=== PATIENT | female | born 1955 | race Caucasian/White ===

== ENCOUNTER 2025-02-18 14:30 | Inpatient (IN) | payer MEDICARE, SELFPAY ==
[2025-02-18] VITALS (21 sets, daily range): BP systolic 105–139; BP diastolic 47–69
--- NOTE | 2025-02-18 10:43 | ED.GENMED ---
History of Present Illness
General
Chief Complaint: Breathing Problem
Source: patient
Exam Limitations: none
Time Seen by Provider: 02/18/25 10:36
History of Present Illness
History of Present Illness:
69yoF with a history of diabetes insipidus, Grave's disease s/p thyroidectomy, seizure disorder, anemia presenting via EMS for evaluation of shortness of breath. Patient reports being sick for the past week with fatigue. She also had some diarrhea
which has resolved. She started to spike fevers yesterday with a Tmax of 101.6. EMS was called today by her daughter due to concern for her breathing. Daughters also noticed that she appeared very pale this morning which was new compared to
yesterday. Her oxygen saturation was 90% on EMS arrival. She was given a [facility] prehospital. She does not have a history of COPD or asthma but is a former smoker. She denies any chest pain or abdominal pain.
Phy Exam
Physical Exam
Physical Exam:
Patient appears fatigued and pale. Non-toxic
General Physical Exam
General Presentation: no apparent distress
General Skin: warm, dry and pale
ENT Exam
ENT Exam: normocephalic
Cardiovascular Exam
Cardiovascular Exam: regular rate/rhythm
Pulmonary Exam
Pulmonary Exam: lungs clear, no respiratory distress, no rales, no crackles and no rhonchi
Gastrointestinal Exam
Gastrointestinal Exam: non tender, soft and non distended
Neurological Exam
Neurological Exam: alert
[place] Coma Scale
Eye Opening: Spontaneous
Verbal Response: Oriented
Motor Response: Obeys Commands
GCS Total Score: 15
Skin Exam
Skin Exam: normal color and warm/dry
Psychiatric Exam
Psychiatric Exam: normal mood/affect
Scores
Heart Failure Risk
Heart Failure Risk Score: Not Applicable
Course
Orders/Labs/Results
Orders:
Orders
02/18/25 10:36
EKG [Electrocardiogram (*1)] Urgent
Reason for Study: Chest Pain
EKG- Treatment ONCE
02/18/25 10:43
CR Chest - 2 Views Urgent
Comment:
Reason For Exam: SOB
02/18/25 10:50
COVID-19 Antigen Urgent
Source: Nasal Swab
Complete Blood Count/With Diff Urgent
Comprehensive Metabolic Panel Urgent
Ferritin Urgent
Comment: ADD ON
Folate Urgent
Comment: ADD ON
Iron Urgent
Comment: AD ON
Manual Differential Urgent
NT-proBNP Urgent
Comment: ADD ON
Total Iron Binding Urgent
Comment: ADD ON
Troponin I Urgent
Vitamin B12 Urgent
Comment: ADD ON
Influenza A+B Rapid Molecular Urgent
SHAWN Source: Nasal Swab
Specimen Description:
02/18/25 11:29
Blood Bank Products [* Blood Bank Products] Urgent
Blood Bank Products: *Packed RBC Leuko(PRBC's)
Quantity: 2
Transfuse Today: Yes
Reason: Anemia
02/18/25 11:30
Acetaminophen [Tylenol] 1,000 mg PO NOW STA
02/18/25 11:49
PTT Urgent
Prothrombin Time Urgent
Blood Culture Q30M
SHAWN Source: Blood/Venous
Specimen Description:
02/18/25 11:50
Type+Screen Urgent
Chest/Abd/Pelvis w Contrast CT [CT Chest/abd/pel W Iv Cont] Urgent
Comment:
Reason For Exam: fever of unknown origin
02/18/25 13:04
ABO2 Routine
BBK Wristband Number:
Associate notified that ABO2 has been ordered: [id number]
Date: 02/18/25
Time: 12:00
[facility] [place] ID: [id number]
Blood Culture Q30M
SHAWN Source: Blood/Venous
Specimen Description:
02/18/25 13:17
Add On- LAB Urgent
Tests Added?: BNP
Furosemide [Lasix] 40 mg IV NOW STA
02/18/25 13:27
Furosemide [Lasix] 20 mg IV NOW STA
02/18/25 13:43
Add On- LAB Urgent
Tests Added?: Pro BNP
02/18/25 14:12
Admit/Transfer Patient As Directed
Co-Sign Provider:
Level of Care: Inpatient admission
Assign to:: IMU- Intermediate Care
Physician / Group: moiz
Diagnosis: symptomatic anemia
Reason for Hospitalization: symptomatic anemia
Expected length of stay greater than two midnights?: Yes
ELOS- Estimated Length of Stay in days: 3
I certify the patient meets the requirements for IP care: Yes
PRN Pain Medication Management As Directed
May give lesser potent ordered pain med per pt: Yes
preference::
Protocol:: Medication orders for pain may be administered in a
manner that supports deferring to patient preference
when the pt is:
- Requesting an ordered lesser potent pain medication.
Least to most potent pain medications are defined
as: acetaminophen < NSAID < tramadol < opioids
(morphine, oxycodone, hydromorphone).
- Requesting a lesser dose of the same medication IF
ORDERED.
- Requesting a less intrusive route of administration
if both routes are prescribed by the provider (PO <
IV).
02/18/25 14:14
Code Status As Directed
Resuscitation Status: Full Code
02/18/25 14:16
Add On- LAB Stat
Tests Added?: iron,ferritin, b12, foalte, TIBC
02/18/25 15:37
Haptoglobin [S] Routine
LDH Routine
Lyme PCR, DNA [S] Routine
Lyme Progressive Routine
Reticulocyte Count Routine
Urinalysis Reflex To Culture Urgent
Date Specimen was Collected: 02/18/25
Time Specimen was Collected: 15:13
Babesia Smear [Blood Parasites] Routine
SHAWN Source: Blood/Venous
Specimen Description:
02/20/25 11:00
DC Protocol for Telemetry ONCE
Abnormal Lab Results
02/18/25 02/18/25 02/18/25
10:50 11:49 11:50
WBC 3.6 L 10^3/uL
(4.8-10.8)
RBC 0.99 L 10^6/uL
(4.20-5.40)
Hgb 3.8 L* g/dL
(12.0-16.0)
Hct 10.8 L* %
(37.0-47.0)
MCV 109.1 H fL
(81.0-99.0)
MCH 38.4 H pg
(27.0-31.0)
RDW 17.6 H %
(11.5-14.5)
Plt Count 58 L 10^3/uL
(130-400)
MPV 12.8 H fL
(7.4-10.4)
Monocytes (Manual) 16 H %
(2-9)
PT 17.1 H Sec
(11.4-14.6)
APTT 19.9 L Sec
(23.4-35.0)
Chloride 111 H mmol/L
(98-107)
Carbon Dioxide 21 L mmol/L
(22-30)
BUN 30 H mg/dl
(7-17)
Glucose 199 H mg/dl
(70-99)
Iron 287 H ug/dl
(37-170)
% Saturation 86 H %
(20-50)
Ferritin 643.0 H ng/ml
(11.1-264.0)
Total Bilirubin 1.5 H mg/dl
(0.2-1.3)
ALT 39 H U/L
(0-35)
Vitamin B12 > 1000 H pg/ml
(239-931)
Folate > 20.0 H ng/ml
(2.76-20)
Crossmatch IS Only See Detail
02/18/25 10:50
02/18/25 10:50
Vital Signs
Initial and Last Documented VS:
Initial Vital Signs
Temp Pulse Ox
100.4 F H 88
02/18/25 10:27 02/18/25 10:27
Last Documented Vital Signs
Temp Pulse Resp BP Pulse Ox
99.6 F 80 18 117/54 92
02/18/25 16:05 02/18/25 16:05 02/18/25 16:05 02/18/25 16:05 02/18/25 16:05
MDM/Problems Addressed
Differential Diagnosis Includes:
69yoF here with SOB. C/o fatigue x 1 week. Started spiking fevers up to 101.6 yesterday. She is obviously pale on arrival although denies any bloody/black stools. Temp 100.4. Oxygen saturation 88% on room air and she was placed on 2L NC.
Differential diagnosis includes but is not limited to: Viral illness, pneumonia, sepsis, symptomatic anemia
Initial ED plan: Check cardiac labs, EKG, COVID/flu swab, and CXR.
*Pulse Oximetry
SaO2: 88
Oxygen Mode of Delivery: Room air
Patient hypoxic: yes (88%)
*EKG
Interpreted by ED Provider?: Yes
EKG Intrepretation Date: 02/18/25
Heart Rate: 85
Rate: normal
Rhythm: sinus
[place]: normal axis
QRS Pattern: right bundle branch block
Ischemia: non-specific ST changes
*Critical Care Note
Total Time (30-74mins, 75-104mins- exclusive of procedures): Not Applicable
Update Note
Update Note:
Labs show a pancytopenia with a hemoglobin of 3.8, white count 3.6, and platelet count of 58. Rectal exam performed and stool is brown and Hemoccult negative. Consent obtained and 2 units PRBCs ordered for transfusion. No source of infection
identified on workup. COVID/flu negative. CT CAP obtained which shows mild pulmonary edema. Dose of 20mg IV Lasix ordered as well as blood cultures. Patient admitted for further management.
ED Attending Note
-
Portions of this chart may have been created with voice recognition software.� Occasional wrong word or��sound alike� substitutions may have occurred due to the inherent limitations of voice recognition software.
Discharge Plan
Departure
Patient Disposition: Admit
Date of Disposition: 02/18/25
Time of Disposition: 13:29
Presentation/result/management discussed w/ accepting MD/DO: Hospitalist
Discharge Problem:
Pancytopenia, Acute hypoxic respiratory failure, Fever
Interventions
Interventions:
*Risk Screen - Suicide Last Done: 02/18/25 12:00
*General Assessment Last Done: 02/18/25 12:00
*Neglect/Abuse Screening Last Done: 02/18/25 12:00
*ED- Fall Risk Assessment Last Done: 02/18/25 12:00
ED- Cardiac Assessment Last Done: 02/18/25 12:00
ED- Pulmonary Assessment Last Done: 02/18/25 12:00
[2025-02-18 11:14] LABS: Hematocrit 10.8 % (37.0-47.0); Hemoglobin 3.8 g/dL (12.0-16.0); Mean Corp Hgb Conc. 35.2 g/dL (33.0-37.0); Mean Corpuscular Volume 109.1 fL (81.0-99.0); Red Cell Dist. Width 17.6 % (11.5-14.5)
--- NOTE | 2025-02-18 11:18 | EDRN ---
Lab called with abnormal test results. Notified Elo JADE and at bedside to sign consent for transfusion of blood.
Labs
WBC 3.6 10^3/uL (4.8-10.8) L 02/18/25 10:50
RBC 0.99 10^6/uL (4.20-5.40) L 02/18/25 10:50
Hgb 3.8 g/dL (12.0-16.0) L* 02/18/25 10:50
Hct 10.8 % (37.0-47.0) L* 02/18/25 10:50
MCV 109.1 fL (81.0-99.0) H 02/18/25 10:50
MCH 38.4 pg (27.0-31.0) H 02/18/25 10:50
MCHC 35.2 g/dL (33.0-37.0) 02/18/25 10:50
RDW 17.6 % (11.5-14.5) H 02/18/25 10:50
[2025-02-18 11:22] LABS: COVID-19 Antigen Negative (Negative)
[2025-02-18 11:32] LABS: Absolute Neutrophils -Man Diff 1.5 10^3/uL (1.4-6.5); Anisocytosis 1+; Normal RBC Morphology No; Platelet Count 58 10^3/uL (130-400); Platelets Checked Yes
[2025-02-18 11:33] LABS: Hypochromasia 1+; Ovalocytes Slight; Polychromasia Slight
[2025-02-18 11:34] LABS: Total Cells Counted 100
[2025-02-18 11:53] LABS: ALT (SGPT) 39 U/L (0-35); AST (SGOT) 35 U/L (14-36); Albumin 4.0 g/dl (3.5-5.0); Alkaline Phosphatase 65 U/L (38-126); Blood Urea Nitrogen 30 mg/dl (7-17); Calcium 9.4 mg/dl (8.4-10.2); Carbon Dioxide 21 mmol/L (22-30); Chloride 111 mmol/L (98-107); Glucose 199 mg/dl (70-99); Potassium 4.5 mmol/L (3.5-5.1); Sodium 138 mmol/L (135-145); Total Protein 6.7 g/dl (6.3-8.2); eGFR > 60.00
[2025-02-18 11:58] LABS: Troponin I < 0.012 ng/ml
[2025-02-18 12:11] LABS: INR 1.34; PT 17.1 Sec (11.4-14.6)
[2025-02-18 12:26] LABS: APTT 19.9 Sec (23.4-35.0)
--- NOTE | 2025-02-18 13:30 | HPS.HSE ---
Family Physician
-
Family Physician: ARIANA Son
Chief Complaint
-
sob
weakness
History of Present Illness
69yoF with a history of diabetes insipidus, Grave's disease s/p thyroidectomy, seizure disorder, anemia presenting with fatigue weakness since Sunday. patient was noted to have diarrhea on Sunday night which resolved. since then she is very
nauseous, dry heaves and abdominal upset. she is complaining of MICHEL and dizzy. she was noted to have fever of 101.6 last night. last night she felt like she is going to pass out. denied fever, chills, cough. denied chest pain. she complained of sob.
denied dysuria or hematuria. via EMS for evaluation of shortness of breath.today she continued to look tired and weak. her pulse ox wasn oted noted in low 80's at home which prompt them to bring her to the hospital. patient denied any acute pain.
as per hx of remote hxt iron infusion for anemia. hxt of colonoscopy which was negative few years ago. Cologuard was three years ago.
upon arrival she was noted panycotpenia. Ordered 2 units of blood in the ER
Medical History
Past Medical History
Past Medical History: Reports Other
Additional Past Medical History:
Hypothyroidism
Anxiety
Anemia
Hypertension
Hypothyroidism
Headache
Hernia
Arthritis
Rotator cuff tear
Thyroid nodule
Depression
Seizure
Pituitary tumors
Central diabetes insipidus
Past Surgical History: Reports Other
Additional Past Surgical History:
Thyroidectomy
Social History
Tobacco: Former Smoker
Alcohol: Former
Drug: None
Living: With Family
Family History
Family History: Not pertinent
Allergies / Home Medications
Allergies reflects when Allergies were last updated in [employer].
Home Medications with original date entered in [employer]
Allergy/Medication List:
Allergies
Allergy/AdvReac Type Severity Reaction Status Date / Time
cefuroxime Allergy Unknown Unknown Unverified 02/18/25 10:35
Cephalosporins Allergy Unknown Unknown Unverified 02/18/25 10:35
Penicillins Allergy Unknown Unknown Unverified 02/18/25 10:35
penicillin G Allergy Unknown Unverified 02/18/25 10:35
Home Medications
acetaminophen 500 mg tablet (Tylenol Extra Strength) 1,000 mg PO Q6HPRN PRN mild pain 02/18/25
aspirin 81 mg tablet,delayed release 81 mg PO DAILY 02/18/25
calcium carbonate (Tums) 400 mg PO BIDPRN PRN gerd 02/18/25
cholecalciferol (vitamin D3) 50 mcg (2,000 unit) capsule (Vitamin D3) 50 mcg PO DAILY 02/18/25
citalopram 20 mg tablet (Celexa) 20 mg PO DAILY 02/18/25
cyanocobalamin (vitamin B-12) 1,000 mcg tablet 1,000 mcg PO DAILY 02/18/25
desmopressin 0.1 mg tablet 0.1 mg PO BID 02/18/25
ferrous sulfate 325 mg (65 mg iron) tablet 325 mg PO Q48H 02/18/25
lacosamide 200 mg tablet (Vimpat) 200 mg PO BID 02/18/25
levothyroxine 112 mcg tablet (Synthroid) 112 mcg PO DAILY 02/18/25
mirtazapine 45 mg tablet 45 mg PO HS 02/18/25
propranolol 20 mg tablet 20 mg PO TID 02/18/25
Review of Systems
-
Constitutional: Reports Fatigue
EENT: Reports No Symptoms
Respiratory: Reports Trouble Breathing
Cardiac: Reports No Symptoms
Abdomen/GI: Reports Constipated
: Reports No Symptoms
Musculoskeletal: Reports No Symptoms
Skin: Reports No Symptoms
Neurological: Reports Dizzy, Headache and Weakness
Endocrine: Reports No Symptoms
Hematologic/Lymphatic: Reports No Symptoms
Psych: Reports No Symptoms
Physical Exam
Vital Signs
Vital Signs
Temp Pulse Resp BP Pulse Ox
100.4 F H 78 26 133/50 95
02/18/25 10:27 02/18/25 11:00 02/18/25 11:00 02/18/25 11:00 02/18/25 11:00
Physical Exam
General: Well Developed, Well Nourished and No Apparent Distress
HEENT: NormoCephalic, Moist mucous membranes and Atraumatic
Respiratory: Clear
Cardiac: S1/S2 and Regular Rhythm; No Murmur or Rub
GI: Soft, Non Tender, Non Distended and Normal Bowel Sounds; No Organomegaly
Rectal: Deferred by Provider
Musculoskeletal: No Clubbing, No Cyanosis and No Edema
Skin: No Rash
Neuro: AO x 3 and Nonfocal/grossly intact
Psych: Calm
Laboratory Results
-
02/18/25 10:50
02/18/25 10:50
Laboratory Results
PT 17.1 Sec (11.4-14.6) H 02/18/25 11:49
INR 1.34 02/18/25 11:49
APTT 19.9 Sec (23.4-35.0) L 02/18/25 11:49
Total Bilirubin 1.5 mg/dl (0.2-1.3) H 02/18/25 10:50
AST 35 U/L (14-36) 02/18/25 10:50
ALT 39 U/L (0-35) H 02/18/25 10:50
Alkaline Phosphatase 65 U/L (38-126) 02/18/25 10:50
Troponin I < 0.012 ng/ml 02/18/25 10:50
Data Reviewed
-
Diagnostic Radiology: Report Reviewed by me
CT Scan: Report Reviewed by me
Lab Data: Labs Reviewed by me
Impression/Plan
-
#Acute hypoxic respiratory failure Secondary to pulmonary edema/symptomatic anemia
-CT chest abdomen pelvis with impression of Findings consistent with pulmonary edema. See above. Mild cardiomegaly. Cholelithiasis.
-Chest x ray with Low lung volumes with increased bronchovascular markings bilaterally. There are several nodular opacities bilaterally which may represent artifact/vessel en face. No significant pleural effusions. Findings may represent
interstitial edema. Follow-up radiographs and/or CT recommended to reevaluate the questioned nodular opacities.
-Patient received Lasix in ER
- Obtain echocardiogram
-Strict WILLIS, daily weight
#History of iron deficiency anemia
# Pancytopenia unclear cause
- WBC 3.6, hemoglobin 3.8 and platelets 58
- 2 units PRBCs in the ER
-Hemoccult negative in ER
-obtain lyme, Babesia
-obtain LDH, haptoglobin,reticulocyte count
-obtain iron panel
#Depression
- Citalopram continued
-Remeron continued for sleep
# History of pituitary tumor
#Diabetes Insipidus
- Desmopressin continued
#History of seizure
-vimpat continued
#Hypothyroidism
- Levothyroxine continued
#DVT prophylaxis
-scd
#CODE status
-full coce
[2025-02-18 14:49] LABS: Iron 287 ug/dl (37-170)
[2025-02-18 14:59] LABS: Total Iron Binding Capacity 330 ug/dl (265-497)
[2025-02-18 15:48] LABS: Reticulocyte Count 1.6 % (0.4-2.8)
[2025-02-18 15:49] LABS: Urine Character Clear (Clear)
[2025-02-18 16:00] LABS: Urine Red Blood Cell 0-2 /HPF (0-2)
[2025-02-18 16:05] LABS: LDH 385 U/L (120-246)
[2025-02-18 16:26] LABS: Ferritin 643.0 ng/ml (11.1-264.0)
--- NOTE | 2025-02-18 16:53 | CARDSERVLU ---
Echocardiogram with Lumason completed after protocol screening completed. Allergies verified.
Patent IV site: __LAC___
IV site flushed with 0.9% NaCl pre and post administration.
Diluted bolus method utilized to enhance visualization of ventricular stroud.
Total volume given: __4__ mL
Patient tolerated all procedures well without complications.
[2025-02-18 16:57] LABS: Folate > 20.0 ng/ml (2.76-20); Vitamin B12 > 1000 pg/ml (239-931)
--- NOTE | 2025-02-18 17:45 | PTCARENOTE ---
Patient arrived to IMU from the ED. Patient slid from stretcher to bed. AOx3, but forgetful. Bed alarm on and audible. 2L NC with SpO2 greater than 92%. NSR with BBB on monitor. BP stable. PRBC's running per order. Patient utilizes bedpan. Daughters
at bedside. Call ochoa within reach, bed in lowest position, and bed of wheels locked.
[2025-02-18] MEDS: INDERAL 20 MG PO ×2 (17:56→21:39)
[2025-02-18] MEDS: VIBRAMYCIN 260 MG IV (19:08)
[2025-02-18] MEDS: DDAVP 0.1 MG PO (19:28)
[2025-02-18] MEDS: VIMPAT 200 MG PO (19:28)
[2025-02-18] MEDS: TYLENOL 650 MG PO (19:29)
[2025-02-18] MEDS: REMERON 45 MG PO (21:40)
[2025-02-19] VITALS (28 sets, daily range): BP systolic 110–150; BP diastolic 49–90
[2025-02-19 01:49] LABS: Hematocrit 18.7 % (37.0-47.0); Hemoglobin 6.6 g/dL (12.0-16.0)
--- NOTE | 2025-02-19 02:00 | W.PN.UPDATE ---
Addendum entered and electronically signed by ARIANA Lopez 02/19/25 19:45:
02/19 0600 late note
RN reported in AM patient was sleeping comfortably after the lasix, now woke up with more cough and shortness of breath.hr is 77, RR are 25, o2 is 94% on 3 L, bp is 144/63. Will order Duoneb, chest Xray stat at present.
Original Note:
Update Note
Progress Note Update
Patient with shortness of breath at present, Temp 99.6 128/67 26 90% on 2L, 96% on 3L now. Patient seen and evaluated, oriented, conversant, Looks uncomfortable pale, reports she feels short of breath and has a dry cough which is not new. Lungs with
rales at the bases L>R, diminished otherwise. HR RR, voiding without difficulty, Bladder scan <50, no edema, Xray results noted, Plan of care noted.
Lasix 40mg IV now.
hgb 6.8 will order one more unit of blood.
May need Bipap if worsens.
129/51 72 95% 17, Patient resting in bed comfortably at present. no new complaints.
Labs
[2025-02-19] MEDS: LASIX 40 MG IV (02:03)
--- NOTE | 2025-02-19 02:18 | PTCARENOTE ---
Patient experiencing SOB and dry cough that was new. TT OCCUP THER, OCCUP THER at bedside to assess patient. New orders placed, see MAR. Patient on 3L NC. Repeat Hgb 6.6, another unit PRBC ordered. Continuing to monitor patient. Call ochoa in reach.
--- NOTE | 2025-02-19 03:20 | PTCARENOTE ---
started blood at 0258. Two nurse verification done at bedside. Back timed tar by 1 minute due to delay of pushing begin in tar. Verified with blood bank and nursing supervisor wood room.
[2025-02-19 03:45] LABS: Hematocrit 19.7 % (37.0-47.0); Hemoglobin 6.8 g/dL (12.0-16.0); Mean Corp Hgb Conc. 34.5 g/dL (33.0-37.0); Mean Corpuscular Volume 100.0 fL (81.0-99.0); Platelet Count 54 10^3/uL (130-400); Red Cell Dist. Width 19.3 % (11.5-14.5)
[2025-02-19 03:59] LABS: ALT (SGPT) 48 U/L (0-35); AST (SGOT) 39 U/L (14-36); Albumin 4.2 g/dl (3.5-5.0); Alkaline Phosphatase 71 U/L (38-126); Blood Urea Nitrogen 29 mg/dl (7-17); Calcium 9.1 mg/dl (8.4-10.2); Carbon Dioxide 22 mmol/L (22-30); Chloride 111 mmol/L (98-107); Glucose 162 mg/dl (70-99); HDL Cholesterol 31 mg/dl; LDL Cholesterol, Calculated 62 mg/dl; Magnesium 2.3 mg/dl (1.6-2.3); Potassium 4.0 mmol/L (3.5-5.1); Sodium 141 mmol/L (135-145); Total Protein 7.1 g/dl (6.3-8.2); Very Low Density Lipoprotein 20 mg/dl (0-30); eGFR > 60.00
[2025-02-19] MEDS: VIBRAMYCIN 260 MG IV ×2 (04:44→16:46)
[2025-02-19] MEDS: SYNTHROID 112 MCG PO (04:44)
[2025-02-19] MEDS: DUONEB 3 ML INH (06:18)
--- NOTE | 2025-02-19 06:54 | CON.ONC ---
Consultation
-
Date Consultation Performed: 02/19/25
Performing Provider: Homer Briggs DO
Impression
Impression
Acute hypoxic respiratory failure secondary to pulmonary edema and symptomatic anemia
- CT chest AP with impression of findings consistent with pulmonary edema
Acute on Chronic Macrocytic Anemia exacerbation with out compensation
- retic 1.6%
- Pancytopenia unclear cause
- repeat H&H pending s/p transfusion of additional (3rd) unit of blood
Plan
Plan
Ordered TSH to assess thyroid function
ordered uric acid, phosphorus in setting of elevated LDH
Ordered GEN
Ordered stool occult testing
UA negative for blood and RBCs
Will wait on pending serology (lyme, babesiosis) for possible etiology of pancytopenia
If negative, patient may have a myelodysplastic disease or bone marrow failure given the pancytopenia without compensation. In this case, bone marrow biopsy would be likely indicated.
Repeat Hgb and hematocrit pending. Would recommend additional transfusion if Hgb <7.
Patient History
History of Present Illness
Patient is a 69 year old female with PMH of a pituitary tumor, central diabetes insipidus, Graves' Disease (s/p thyroidectomy and subsequent hypothyroidism), seizure disorder and chronic iron deficiency anemia who presented to the ED with weakness
and GI symptoms. Patient had one episode of diarrhea on 02/15 with associated with N/V. She also reported a fever of 100.6 on 02/17. Patient has had iron infusions in the past, but has never had a blood transfusion. Patient has had normal colonoscopy
in the past, and a normal Cologuard 3 years ago.
In the ED, patient was mildly febrile 100.4 F and mildly hypoxic with pulse ox in high 80s on room air which improved to low 90s on 2 L NC. Labs revealed pancytopenia: WBC 3.6, Hgb 3.8, Plts 58,000.
BUN of 30 with a creatinine of 1.0, mildly abnormal LFTs with a T. bili 1.5/AST 35/ALT 39, BNP elevated at 5700
Hemolysis Work up: retic count 1.6%, LDH 385, haptoglobin pending
Chest CT shows pulmonary edema and small bilateral pleural effusions
She was given a dose of IV Lasix and 2 units of PRBCs were transfused followed by an additional unit overnight. She has been admitted for further evaluation and management of symptomatic anemia and pancytopenia.
Today patient labs are WBC 4.4, Hgb 6.8, Plt 54
Patient seen at the bedside this morning. She said she is feeling better and stronger than yesterday when she arrived. Patient has had chronic anemia since she was a teenager, but she thinks she only has ever taken iron supplements for it. Patient
is a poor historian and advised we talk to her daughter who is a nurse. Patient denies all ROS this morning.
Past-Medical/Surgical History
Medical History
Anxiety
Depression
Anemia
Hypertension
Graves Disease s/p thyroidectomy and subsequent hypothyroidism
Seizure
Pituitary tumor
Central diabetes insipidus
Surgical History
Thyroidectomy
Patient Medication
�Medication �Instructions �Recorded �Confirmed �Last Taken �Type
acetaminophen 500 mg tablet 1,000 mg PO Q6HPRN PRN mild pain 02/18/25 02/18/25 02/17/25 History
(Tylenol Extra Strength)
aspirin 81 mg tablet,delayed 81 mg PO DAILY 02/18/25 02/18/25 Unknown History
release
calcium carbonate (Tums) 400 mg PO BIDPRN PRN gerd 02/18/25 02/18/25 02/17/25 History
cholecalciferol (vitamin D3) 50 50 mcg PO DAILY 02/18/25 02/18/25 Unknown History
mcg (2,000 unit) capsule (Vitamin
D3)
citalopram 20 mg tablet (Celexa) 20 mg PO DAILY 02/18/25 02/18/25 02/18/25 History
cyanocobalamin (vitamin B-12) 1,000 mcg PO DAILY 02/18/25 02/18/25 Unknown History
1,000 mcg tablet
desmopressin 0.1 mg tablet 0.1 mg PO BID 02/18/25 02/18/25 02/18/25 History
ferrous sulfate 325 mg (65 mg 325 mg PO Q48H 02/18/25 02/18/25 02/17/25 History
iron) tablet
lacosamide 200 mg tablet (Vimpat) 200 mg PO BID 02/18/25 02/18/25 02/18/25 History
levothyroxine 112 mcg tablet 112 mcg PO DAILY 02/18/25 02/18/25 Unknown History
(Synthroid)
mirtazapine 45 mg tablet 45 mg PO HS 02/18/25 02/18/25 Unknown History
propranolol 20 mg tablet 20 mg PO TID 02/18/25 02/18/25 02/18/25 History
Active Medications
Generic Name Dose Route Start Last Admin
Trade Name Freq PRN Reason Stop Dose Admin
Acetaminophen 650 mg 02/18/25 17:13 02/18/25 19:29
Acetaminophen 325 Mg Tablet PO 03/18/25 17:12 650 mg
Q4HPRN PRN Administration
mild pain/MICHEL/temp> 100.4F
Bisacodyl 10 mg 02/18/25 17:13
Bisacodyl 10 Mg Rectal Suppository RECTAL 03/18/25 17:12
[id number] PRN
constipation
Citalopram Hydrobromide 20 mg 02/19/25 08:00
Citalopram 20 Mg Tablet PO 03/19/25 07:59
DAILY IGNACIO
Desmopressin Acetate 0.1 mg 02/18/25 20:00 02/18/25 19:28
Desmopressin 0.1 Mg Tablet PO 03/18/25 19:59 0.1 mg
BID IGNACIO Administration
Ferrous Sulfate 325 mg 02/19/25 08:00
Ferrous Sulfate 325 Mg Tablet PO 03/19/25 07:59
Q48H IGNACIO
Doxycycline Hyclate 100 mg/ 260 mls @ 260 mls/hr 02/18/25 16:00 02/19/25 04:44
Sodium Chloride IV 260 mls
Q12H IGNACIO Administration
Lacosamide 200 mg 02/18/25 20:00 02/18/25 19:28
Lacosamide (Vimpat) 200 Mg Tablet PO 03/18/25 19:59 200 mg
BID IGNACIO Administration
Levothyroxine Sodium 112 mcg 02/19/25 06:00 02/19/25 04:44
Levothyroxine 112 Mcg Tablet PO 03/19/25 05:59 112 mcg
DAILY@0600 IGNACIO Administration
Mirtazapine 45 mg 02/18/25 22:00 02/18/25 21:40
Mirtazapine 15 Mg Regular Release Tablet PO 03/18/25 21:59 45 mg
HS IGNACIO Administration
Polyethylene Glycol 17 grams 02/18/25 17:13
Polyethylene Glycol Powder 17 Grams Packet PO 03/18/25 17:12
DAILYPRN PRN
constipation
Propranolol HCl 20 mg 02/18/25 17:13 02/18/25 21:39
Propranolol 20 Mg Regular Release Tablet PO 03/18/25 17:12 20 mg
TID IGNACIO Administration
Senna/Docusate Sodium 1 tablet 02/18/25 17:13
Docusate W/Senna (Dina-Colace) Tablet PO 03/18/25 17:12
BIDPRN PRN
constipation
Sodium Chloride 0 flush 02/18/25 18:00
Sodium Chloride 0.9% (Flush) Syringe IV 03/18/25 17:59
PER PROTOCOL IGNACIO
Review of Systems
-
History Source: Patient
Constitutional: Reports Fever, Fatigue and Weakness
EENT: Reports No Symptoms
Respiratory: Reports No Symptoms
Cardiac: Reports No Symptoms
GI: Reports Nausea, Vomiting and Diarrhea
: Reports No Symptoms
Musculoskeletal: Reports No Symptoms
Skin: Reports No Symptoms
Neuro: Reports No Symptoms
Hematologic/Lymphatic: Reports No Symptoms
Psych: Reports No Symptoms
Physical Exam
-
General: No Apparent Distress and Comfortable
Cardiology: Normal Sinus Rhythm
Pulmonary: Clear
GI: Soft and Normal Bowel Sounds
Musculoskeletal: No Edema
Extremities: Pulses Present
Skin: Warm and Dry
Psych: Calm
Labs
Lab Results
WBC 4.4 10^3/uL (4.8-10.8) L 02/19/25 03:01
RBC 1.97 10^6/uL (4.20-5.40) L 02/19/25 03:01
Hgb 6.8 g/dL (12.0-16.0) L* 02/19/25 03:01
Hct 19.7 % (37.0-47.0) L* 02/19/25 03:01
MCV 100.0 fL (81.0-99.0) H 02/19/25 03:01
MCH 34.5 pg (27.0-31.0) H 02/19/25 03:01
MCHC 34.5 g/dL (33.0-37.0) 02/19/25 03:01
RDW 19.3 % (11.5-14.5) H 02/19/25 03:01
Plt Count 54 10^3/uL (130-400) L 02/19/25 03:01
MPV 12.3 fL (7.4-10.4) H 02/19/25 03:01
Creatinine 0.9 mg/dL (0.6-1.0) 02/19/25 03:01
Vital Signs
Vital Signs
Temp Pulse Resp BP Pulse Ox
99.6 F 78 16 144/63 96
02/19/25 05:40 02/19/25 06:21 02/19/25 06:21 02/19/25 05:40 02/19/25 06:21
[2025-02-19] MEDS: CELEXA 20 MG PO (07:32)
[2025-02-19] MEDS: VIMPAT 200 MG PO ×2 (07:32→20:28)
[2025-02-19] MEDS: TYLENOL 650 MG PO (07:32)
[2025-02-19] MEDS: DDAVP 0.1 MG PO (07:32)
[2025-02-19] MEDS: FEOSOL 325 MG PO (07:32)
[2025-02-19] MEDS: INDERAL 20 MG PO ×3 (07:33→20:28)
--- NOTE | 2025-02-19 09:11 | PTCARENOTE ---
Patient had 100.6 F oral temp this AM. PO tylenol given per OCT. Temp rechecked after approx an hour and is 98.8 F. Care ongoing.
[2025-02-19 11:40] LABS: Hematocrit 18.4 % (37.0-47.0); Hemoglobin 6.6 g/dL (12.0-16.0)
[2025-02-19 12:09] LABS: Uric Acid 4.5 mg/dl (2.5-6.2)
--- NOTE | 2025-02-19 12:18 | W.PN.HOSP.TC ---
Addendum entered and electronically signed by Taiwo Thomas DO 02/19/25 15:51:
Clarification of etiology of pulmonary edema:
Acute non-cardiac pulmonary edema due to fluid overload to the best my knowledge at this time
Original Note:
Today's Communication/Plan
-
Assessment / Plan
Assessment / Plan
General: No Apparent Distress, Comfortable and Conversant
HEENT: NormoCephalic, Moist mucous membranes, Atraumatic
Respiratory: Clear and Non Labored Respirations
Cardiac: S1/S2 and Regular Rhythm; No Rub or Gallop
GI: Soft, Non Tender, Non Distended and Normal Bowel Sounds
Musculoskeletal: No Edema, no deformity
Skin: Warm and dry, pale
: NO Page
Neuro: Awake, Alert, Nonfocal/grossly intact
Psych: Calm and Intact Judgment/Insight
Ms. Bay is a 69-year-old female with medical history of pituitary tumor, central diabetes insipidus, Graves' disease (status post thyroidectomy and subsequent acquired hypothyroidism), seizure disorder, and chronic iron deficiency anemia who
presented with generalized weakness and GI symptoms. Her symptoms began on Sunday with 1 episode of diarrhea. She has also had intermittent nausea and vomiting. She reports a fever of 100.6 �F at home last evening. She denies abdominal pain or
blood in her stools. She denies cough or shortness of breath. She has received iron infusions in the past remotely but never blood transfusions. She has had a colonoscopy which was reportedly negative previously and a Cologuard 3 years ago which
was also reportedly negative. She has a significant smoking history of approximately 40 pack years, quit 3 years ago when she developed seizures. Has never followed up with a house mover helper.
In the ED, she was found to be mildly febrile with a temperature of 100.4 �F, normotensive, and mildly hypoxic with a pulse ox in the high 80s on room air which improved to the mid 90s on 2 L nasal cannula. Labs revealed pancytopenia with WBC 3.6,
hemoglobin 3.8, and platelets of 58,000. Chemistry was remarkable for a BUN of 30 with a creatinine of 1.0, mildly abnormal LFTs with a T. bili 1.5/AST 35/ALT 39, BNP elevated at 5700. Chest CT shows pulmonary edema and small bilateral pleural
effusions. Respiratory panel was negative for COVID and influenza. She was given a dose of IV Lasix and 2 units of PRBCs were ordered. She has been admitted for further evaluation and management of symptomatic anemia and pancytopenia.
Pancytopenia:
- No evidence of bleeding, checking Hemoccult, hemodynamically stable
- Transfused 3 units PRBCs since admission, repeat hemoglobin 6.6 this morning, will transfuse another unit
- Inappropriately low reticulocyte count with elevated MCV of 109 raising concern for myelodysplasia
- White count and platelets relatively stable, no absolute neutropenia or lymphopenia
- Hemolysis workup ongoing but relatively unremarkable, only very mildly elevated T. bili at time of admission which is trended up slightly to 2.2, LDH elevated, haptoglobin pending, continue to monitor LFTs
- Workup for tickborne illness ongoing, Lyme/babesiosis/Ehrlichia/Anaplasma pending, started empiric doxycycline upon admission, added Levaquin for broader coverage considering fevers overnight and multiple drug allergies
- Heme-onc following, guidance is appreciated, unremarkable peripheral smear, recommending eventual bone marrow biopsy
Pulmonary edema:
- No history of CHF
- Chest imaging shows pulmonary edema and bilateral pleural effusions, labs show significantly elevated BNP of 5700
- Echocardiogram shows elevated right-sided pressures, normal LVEF
- Given IV Lasix in the ED and another dose overnight, will start scheduled Lasix considering blood transfusions
- Repeat CT angiography of chest this morning 02/19 shows worsening pulmonary edema and effusions, no evidence of PE
- Will check troponins
- Suspect desmopressin use for diabetes insipidus may be contributing to volume overload, decrease dose
Acute hypoxic respiratory failure:
- Likely secondary to pulmonary edema
- Continue supplemental oxygen, wean as able
- Treatment of pulmonary edema as above
- Continue antibiotics with doxycycline, added Levaquin considering ongoing intermittent fevers, follow-up cultures
- DuoNebs ordered as needed
- She will need outpatient pulmonology follow-up for PFTs considering approximately [id number] smoking history
Central diabetes insipidus:
- Decreased home dose of desmopressin to 0.1 mg once daily
DVT prophylaxis: SCDs
CODE STATUS: Full code
Total time spent on today's encounter was 40 minutes
Anticipated Discharge: > 48 hours
Subjective/Interval History
-
Date of Service: February 19, 2025
Patient was seen and examined at bedside this morning. Currently breathing comfortably and saturating in the mid 90s on 3 L via nasal cannula. She had an episode of hypoxia overnight with repeat x-ray showing worsening edema. She was given a dose
of IV Lasix, also required an additional unit of blood.
Objective Data
-
Labs:
Laboratory Results
02/19/25 02/19/25 02/19/25
01:24 03:01 11:03
WBC 4.4 L
Hgb 6.6 L* D 6.8 L* 6.6 L*
Hct 18.7 L* 19.7 L* 18.4 L*
Plt Count 54 L
Sodium 141
Potassium 4.0
Chloride 111 H
Carbon Dioxide 22
BUN 29 H
Creatinine 0.9
Glucose 162 H
Calcium 9.1
Total Bilirubin 2.2 H
AST 39 H
ALT 48 H
Alkaline Phosphatase 71
Vital Signs:
Vital Signs
Temp Pulse Resp BP Pulse Ox
98.4 F 71 19 125/57 93
02/19/25 11:13 02/19/25 11:00 02/19/25 11:00 02/19/25 10:00 02/19/25 11:00
I&O
02/18/25 02/19/25 02/20/25
06:59 06:59 06:59
Intake Total 1480 / 1480
Output Total 800 / 800
Balance 680 / 680
Review of Systems
-
History Source: Patient
All other systems: Reviewed and negative
Constitutional: Reports Fatigue
Respiratory: Reports Cough
Physical Exam
-
General: No Apparent Distress
[2025-02-19] MEDS: LASIX 20 MG IV (12:31)
[2025-02-19] MEDS: LEVAQUIN 750 MG PO (12:31)
[2025-02-19 12:32] LABS: TSH 1.32 uIU/ml (0.47-4.68)
[2025-02-19 12:46] LABS: Lyme Antibody Screen, EIA Negative (Negative)
--- NOTE | 2025-02-19 15:03 | PN.CDI ---
CDI
- -
CDI:
Physician Documentation Request
Admit Date: 02/18/25 14:30
Dear Doctor William,
Please review the following and provide your response in the progress notes.
Clinical Indicators:
PN, 02/19
#Pulmonary edema:
#...- No history of CHF
#...- Chest imaging shows pulmonary edema and bilateral pleural effusions,
#...labs show significantly elevated BNP of 5700
#- Echocardiogram shows elevated right-sided pressures,
#...normal LVEF
#...- Given IV Lasix in the ED and another dose overnight,
#...will start scheduled Lasix considering blood transfusions
#- Repeat CT angiography of chest this morning 02/19 shows worsening pulmonary edema
#...and effusions, no evidence of PE
#...- Suspect desmopressin use for diabetes insipidus may be contributing
#...to volume overload, decrease dose
Please clarify the acuity and etiology of the pulmonary edema:
Acute non-cardiac pulmonary edema due to fluid overload
Acute non-cardiac pulmonary edema due to other cause (please specify)
Acute pulmonary edema due to heart failure (please specify type and acuity)
Type: systolic, diastolic, combined or other type
Acuity: acute (new onset), chronic or acute on chronic
Chronic pulmonary edema due to non-cardiac etiology (specify cause)
Other (please specify)
Use of terms such as suspected, likely, concern for, or probable (associated with a specific diagnosis that is being evaluated, monitored, or treated as if it exists) are acceptable and can be coded in the inpatient setting, when documented at the
time of discharge.
Thank you,
Laura Arauz RN BSN CCDS
CDI Specialist
Please contact via tiger text
Please use your independent medical judgment in providing your response.
--- NOTE | 2025-02-19 15:47 | CM ---
Alert awake oriented patient who lives with her dgt Odalys in one story home with 1 steps to enter .She does not drive . She is assisted with meals and meds. She is on new oxygen .
No adaptive devices
Has had VN/SNF in [place]
Pharmacy [facility]
PCP Dr Alston
PLAN Will need PT OT for dc planning.
--- NOTE | 2025-02-19 16:33 | PTCARENOTE ---
Patient AOx3. Patient is forgetful, has flat affect, and is anxious. Bed and chair alarm on and audible. 2L NC with SpO2 greater than 92%. Attempted to wean patient to RA but SpO2 went below 88%. NSR with BBB on monitor. BP stable. 1 unit of PRBC's
infused per order. Purewick draining yellow urine. Daughter at bedside and updated with plan of care. Call ochoa within reach, bed in lowest position, and bed of wheels locked.
[2025-02-19 18:53] LABS: Hematocrit 21.9 % (37.0-47.0); Hemoglobin 7.9 g/dL (12.0-16.0)
[2025-02-19 19:20] LABS: Troponin I 0.020 ng/ml
[2025-02-19] MEDS: REMERON 45 MG PO (20:28)
[2025-02-20] VITALS (15 sets, daily range): BP systolic 76–147; BP diastolic 18–88; PULSE 70–73; O2SAT 95–96
[2025-02-20 03:44] LABS: Hematocrit 22.8 % (37.0-47.0); Hemoglobin 8.2 g/dL (12.0-16.0); Mean Corp Hgb Conc. 36.0 g/dL (33.0-37.0); Mean Corpuscular Volume 94.2 fL (81.0-99.0); Red Cell Dist. Width 18.0 % (11.5-14.5)
[2025-02-20 04:05] LABS: ALT (SGPT) 41 U/L (0-35); AST (SGOT) 33 U/L (14-36); Albumin 3.9 g/dl (3.5-5.0); Alkaline Phosphatase 69 U/L (38-126); Blood Urea Nitrogen 23 mg/dl (7-17); Calcium 8.1 mg/dl (8.4-10.2); Carbon Dioxide 22 mmol/L (22-30); Chloride 106 mmol/L (98-107); Glucose 135 mg/dl (70-99); Platelet Count 52 10^3/uL (130-400); Potassium 3.3 mmol/L (3.5-5.1); Sodium 138 mmol/L (135-145); Total Protein 6.7 g/dl (6.3-8.2); eGFR > 60.00
[2025-02-20] MEDS: SYNTHROID 112 MCG PO (04:21)
[2025-02-20] MEDS: KCL 40 MEQ PO ×2 (04:21→09:38)
[2025-02-20] MEDS: VIBRAMYCIN 260 MG IV ×2 (04:21→16:19)
--- NOTE | 2025-02-20 04:54 | PTCARENOTE ---
Patient complained of wave of nausea followed by hemoptysis. fisher scallop provider made aware. Am hgb 8.2. Nausea resolved on its own. Am k 3.3 fisher scallop provider ordered repletion. Will continue to monitor.
--- NOTE | 2025-02-20 06:13 | PTCARENOTE ---
Patient complaining of nausea and requesting medication. electric lift truck driver provider made aware and ordered dose of benadryl.
[2025-02-20] MEDS: BENADRYL 12.5 MG IV (06:16)
[2025-02-20] MEDS: LEVAQUIN 750 MG PO (09:34)
[2025-02-20] MEDS: DDAVP 0.1 MG PO (09:34)
[2025-02-20] MEDS: CELEXA 20 MG PO (09:34)
[2025-02-20] MEDS: VIMPAT 200 MG PO ×2 (09:34→19:52)
[2025-02-20] MEDS: LASIX 40 MG IV (09:35)
[2025-02-20] MEDS: INDERAL 20 MG PO ×3 (09:35→22:54)
--- NOTE | 2025-02-20 11:03 | W.PN.ONC ---
Documented by User: Kaycee Ragland DO, Resident 02/20/25 11:17
Today's Communication / Plan
-
Hgb today 8.2 s/p transfusion
Plt 52
GEN negative
No clear evidence of GI blood loss or hemolysis.
Continue to monitor with CBC. Continue to transfuse hemoglobin less than 7 g/dL.
Will wait on pending workup for tickborne illness (lyme/babesiosis/Ehrlichia/Anaplasma)
If negative, patient may have a myelodysplastic disease or bone marrow failure given the pancytopenia without compensation. In this case, out patient bone marrow biopsy would be likely indicated.
Impression
Impression
Acute non-cardiac pulmonary edema due to fluid overload
- CT chest AP with impression of findings consistent with pulmonary edema
Symptomatic Acute on Chronic Macrocytic Anemia exacerbation with out compensation
- retic 1.6%
- Pancytopenia unclear cause
- Hgb today 8.2 s/p transfusion
- Plt 52
- GEN negative
Plan
Plan
Hgb today 8.2 s/p transfusion
Plt 52
GEN negative
No clear evidence of GI blood loss or hemolysis.
Continue to monitor with CBC. Continue to transfuse hemoglobin less than 7 g/dL.
Will wait on pending workup for tickborne illness (lyme/babesiosis/Ehrlichia/Anaplasma)
If negative, patient may have a myelodysplastic disease or bone marrow failure given the pancytopenia without compensation. In this case, out patient bone marrow biopsy would be likely indicated.
Subjective/Objective
Subjective/Objective
Patient seen at the bedside today with daughter present. Patient is feeling stronger today, she is sitting up chatting with her daughter. Patient said she is not having trouble breathing at rest but is now on 4L NC up from 2 yesterday. Daughter said
she was short of breath moving to the chair. Patient denies all other ROS.
General: not in acute distress
Cardiovascular: RRR
Respiratory: 4L NC, clear left lung, decrease breath sounds on right side.
Extremities: no edema LE b/l
Vital Signs:
Vital Signs
Temp Pulse Resp BP Pulse Ox
98.6 F 68 20 129/83 96
02/20/25 08:01 02/20/25 06:10 02/20/25 06:10 02/20/25 09:35 02/20/25 06:10
Lab Results:
Laboratory Data
WBC 4.5 10^3/uL (4.8-10.8) L 02/20/25 03:18
Hgb 8.2 g/dL (12.0-16.0) L 02/20/25 03:18
Plt Count 52 10^3/uL (130-400) L 02/20/25 03:18
PT 17.1 Sec (11.4-14.6) H 02/18/25 11:49
INR 1.34 02/18/25 11:49
APTT 19.9 Sec (23.4-35.0) L 02/18/25 11:49
eGFR > 60.00 02/20/25 03:18
Orders
Orders
Orders From Last 24 Hours
02/19/25 11:03
Direct Sean [GEN Polyspecific GEL] Routine
Phosphorus Routine
TSH Routine
Uric Acid Routine

Documented by User: Rashawn Morillo MD 02/20/25 12:45
Plan
Plan
Hgb today 8.2 s/p transfusion
Plt 52
GEN negative
No clear evidence of GI blood loss or hemolysis.
Continue to monitor with CBC. Continue to transfuse hemoglobin less than 7 g/dL.
Will wait on pending workup for tickborne illness (lyme/babesiosis/Ehrlichia/Anaplasma)
If negative, patient may have a myelodysplastic disease or bone marrow failure given the pancytopenia without compensation. In this case, out patient bone marrow biopsy would be likely indicated.
Hematology Addendum:
Patient seen and evaluated and agree w/ resident note and plan as outlined
-anemia/ thrombocytopenia
-viral/ infectious w/u in progress
-likely will need bone marrow - will arrange accordingly
-follow CBC
Will follow with you.
--- NOTE | 2025-02-20 15:49 | CM ---
Odalys spoke with CM in patient room on IMU. Patient would like VN if needed from [facility]. Patient remains on O2 at this time. CM will continue to follow for discharge planning needs.
Plan; watch for home O2 needs/VN patient wants to go home
--- NOTE | 2025-02-20 16:54 | W.PN.HOSP.TC ---
Today's Communication/Plan
-
Assessment / Plan
Assessment / Plan
General: No Apparent Distress, Comfortable and Conversant
HEENT: NormoCephalic, Moist mucous membranes, Atraumatic
Respiratory: Clear and Non Labored Respirations
Cardiac: S1/S2 and Regular Rhythm; No Rub or Gallop
GI: Soft, Non Tender, Non Distended and Normal Bowel Sounds
Musculoskeletal: No Edema, no deformity
Skin: Warm and dry
: NO Paeg
Neuro: Awake, Alert, Nonfocal/grossly intact
Psych: Calm and Intact Judgment/Insight
Ms. Bay is a 69-year-old female with medical history of pituitary tumor, central diabetes insipidus, Graves' disease (status post thyroidectomy and subsequent acquired hypothyroidism), seizure disorder, and chronic iron deficiency anemia who
presented with generalized weakness and GI symptoms. Her symptoms began on Sunday with 1 episode of diarrhea. She has also had intermittent nausea and vomiting. She reports a fever of 100.6 �F at home last evening. She denies abdominal pain or
blood in her stools. She denies cough or shortness of breath. She has received iron infusions in the past remotely but never blood transfusions. She has had a colonoscopy which was reportedly negative previously and a Cologuard 3 years ago which
was also reportedly negative. She has a significant smoking history of approximately 40 pack years, quit 3 years ago when she developed seizures. Has never followed up with a medical coding specialist.
In the ED, she was found to be mildly febrile with a temperature of 100.4 �F, normotensive, and mildly hypoxic with a pulse ox in the high 80s on room air which improved to the mid 90s on 2 L nasal cannula. Labs revealed pancytopenia with WBC 3.6,
hemoglobin 3.8, and platelets of 58,000. Chemistry was remarkable for a BUN of 30 with a creatinine of 1.0, mildly abnormal LFTs with a T. bili 1.5/AST 35/ALT 39, BNP elevated at 5700. Chest CT shows pulmonary edema and small bilateral pleural
effusions. Respiratory panel was negative for COVID and influenza. She was given a dose of IV Lasix and 2 units of PRBCs were ordered. She has been admitted for further evaluation and management of symptomatic anemia and pancytopenia.
Pancytopenia:
- No evidence of bleeding, Hemoccult negative, hemodynamically stable
- Transfused 4 units PRBCs since admission
- Inappropriately low reticulocyte count with elevated MCV of 109 raising concern for myelodysplasia
- Direct antiglobulin test negative, mildly elevated T. bili and LDH, doubt hemolysis
- White count and platelets relatively stable, no absolute neutropenia or lymphopenia
- Workup for tickborne illness ongoing, Lyme/babesiosis/Ehrlichia/Anaplasma pending, started empiric doxycycline upon admission, added Levaquin for broader coverage considering fevers overnight and multiple drug allergies
- Heme-onc following, guidance is appreciated, unremarkable peripheral smear, recommending eventual bone marrow biopsy
Pulmonary edema:
- No history of CHF
- Chest imaging shows pulmonary edema and bilateral pleural effusions, labs show significantly elevated BNP of 5700
- Echocardiogram shows elevated right-sided pressures, normal LVEF, troponins normal
- Repeat CT angiography of chest this morning 02/19 shows worsening pulmonary edema and effusions, no evidence of PE
- Continue IV Lasix daily
- Suspect desmopressin use for diabetes insipidus may be contributing to volume overload, decreased dose from twice daily to daily, discussed with patient's primary land survey technician Dr. Ambar Saunders
Acute hypoxic respiratory failure:
- Likely secondary to pulmonary edema
- Continue supplemental oxygen, wean as able
- Treatment of pulmonary edema as above
- Continue antibiotics with doxycycline, added Levaquin considering ongoing intermittent fevers, follow-up cultures
- DuoNebs ordered as needed
- She will need outpatient pulmonology follow-up for PFTs considering approximately 30-[id number] smoking history
Central diabetes insipidus:
- Decreased home dose of desmopressin to 0.1 mg once daily
DVT prophylaxis: SCDs
CODE STATUS: Full code
Total time spent on today's encounter was 40 minutes
Anticipated Discharge: 24 - 48 hours
Subjective/Interval History
-
Date of Service: February 20, 2025
Patient was seen and examined at bedside this morning. Hemoglobin now above transfusion threshold. Platelets and white cells have not changed, still low.
Objective Data
-
Vital Signs:
Vital Signs
Temp Pulse Resp BP Pulse Ox
98.5 F 64 26 120/59 97
02/20/25 14:41 02/20/25 16:18 02/20/25 14:01 02/20/25 16:18 02/20/25 15:34
I&O
02/19/25 02/20/25 02/21/25
06:59 06:59 06:59
Intake Total 1480 / 1480 1979 / 1979
Output Total 800 / 800 1700 / 1700
Balance 680 / 680 280 / 280
Review of Systems
-
History Source: Patient
All other systems: Reviewed and negative
Constitutional: Reports Fatigue and Weakness
Respiratory: Reports Cough
Physical Exam
-
General: No Apparent Distress
[2025-02-20] MEDS: REMERON 45 MG PO (22:54)
[2025-02-21] VITALS (8 sets, daily range): BP systolic 113–134; BP diastolic 51–71
[2025-02-21] MEDS: SYNTHROID 112 MCG PO (03:43)
[2025-02-21] MEDS: VIBRAMYCIN 260 MG IV (03:43)
[2025-02-21 04:21] LABS: Hematocrit 24.4 % (37.0-47.0); Hemoglobin 8.6 g/dL (12.0-16.0); Mean Corp Hgb Conc. 35.2 g/dL (33.0-37.0); Mean Corpuscular Volume 97.2 fL (81.0-99.0); Platelet Count 48 10^3/uL (130-400); Red Cell Dist. Width 17.4 % (11.5-14.5)
[2025-02-21 04:32] LABS: ALT (SGPT) 39 U/L (0-35); AST (SGOT) 34 U/L (14-36); Albumin 3.9 g/dl (3.5-5.0); Alkaline Phosphatase 65 U/L (38-126); Blood Urea Nitrogen 22 mg/dl (7-17); Calcium 8.7 mg/dl (8.4-10.2); Carbon Dioxide 21 mmol/L (22-30); Chloride 112 mmol/L (98-107); Glucose 120 mg/dl (70-99); Potassium 4.1 mmol/L (3.5-5.1); Sodium 141 mmol/L (135-145); Total Protein 6.7 g/dl (6.3-8.2); eGFR > 60.00
[2025-02-21] MEDS: FEOSOL 325 MG PO (09:12)
[2025-02-21] MEDS: LEVAQUIN 750 MG PO (09:12)
[2025-02-21] MEDS: LASIX 40 MG IV (09:12)
[2025-02-21] MEDS: INDERAL 20 MG PO ×2 (09:12→16:12)
[2025-02-21] MEDS: VIMPAT 200 MG PO (09:12)
[2025-02-21] MEDS: CELEXA 20 MG PO (09:12)
[2025-02-21] MEDS: DDAVP 0.1 MG PO (09:12)
--- NOTE | 2025-02-21 10:58 | PTCARENOTE ---
Assumed care of Pt at shift change. Pt resting comfortably in bed. Weaned to room air and OOB to chair. AAO x 3, very forgetful; Pt maintaining 92-95% at rest. Lungs CTA; NSR with BBB on monitor; Denies pain; Denies nausea; Will continue to
monitor and assess.
--- NOTE | 2025-02-21 14:34 | W.PN.HOSP.TC ---
Today's Communication/Plan
-
Assessment / Plan
Assessment / Plan
General: No Apparent Distress, Comfortable and Conversant
HEENT: NormoCephalic, Moist mucous membranes, Atraumatic
Respiratory: Clear and Non Labored Respirations
Cardiac: S1/S2 and Regular Rhythm; No Rub or Gallop
GI: Soft, Non Tender, Non Distended and Normal Bowel Sounds
Musculoskeletal: No Edema, no deformity
Skin: Warm and dry
: NO Page
Neuro: Awake, Alert, Nonfocal/grossly intact
Psych: Calm and Intact Judgment/Insight
Ms. Bay is a 69-year-old female with medical history of pituitary tumor, central diabetes insipidus, Graves' disease (status post thyroidectomy and subsequent acquired hypothyroidism), seizure disorder, and chronic iron deficiency anemia who
presented with generalized weakness and GI symptoms. Her symptoms began on Sunday with 1 episode of diarrhea. She has also had intermittent nausea and vomiting. She reports a fever of 100.6 �F at home last evening. She denies abdominal pain or
blood in her stools. She denies cough or shortness of breath. She has received iron infusions in the past remotely but never blood transfusions. She has had a colonoscopy which was reportedly negative previously and a Cologuard 3 years ago which
was also reportedly negative. She has a significant smoking history of approximately 40 pack years, quit 3 years ago when she developed seizures. Has never followed up with a performance test engineer.
In the ED, she was found to be mildly febrile with a temperature of 100.4 �F, normotensive, and mildly hypoxic with a pulse ox in the high 80s on room air which improved to the mid 90s on 2 L nasal cannula. Labs revealed pancytopenia with WBC 3.6,
hemoglobin 3.8, and platelets of 58,000. Chemistry was remarkable for a BUN of 30 with a creatinine of 1.0, mildly abnormal LFTs with a T. bili 1.5/AST 35/ALT 39, BNP elevated at 5700. Chest CT shows pulmonary edema and small bilateral pleural
effusions. Respiratory panel was negative for COVID and influenza. She was given a dose of IV Lasix and 2 units of PRBCs were ordered. She has been admitted for further evaluation and management of symptomatic anemia and pancytopenia.
Pancytopenia:
- No evidence of bleeding, Hemoccult negative, hemodynamically stable
- Transfused 4 units PRBCs since admission, hemoglobin responded appropriately and remained stable
- Inappropriately low reticulocyte count with elevated MCV of 109 raising concern for myelodysplasia
- Direct antiglobulin test negative, mildly elevated T. bili and LDH, doubt hemolysis
- White count and platelets relatively stable, no absolute neutropenia or lymphopenia
- Workup for tickborne illness ongoing, Lyme/babesiosis/Ehrlichia/Anaplasma pending, continuing empiric doxycycline, added Levaquin for broader coverage considering fevers and multiple drug allergies
- Has remained afebrile greater than 48 hours
- Heme-onc following, guidance is appreciated, unremarkable peripheral smear, recommending eventual bone marrow biopsy
- Currently medically stable for discharge to home
Pulmonary edema:
- No history of CHF
- Initial chest imaging showed pulmonary edema and bilateral pleural effusions, labs show significantly elevated BNP of 5700
- Echocardiogram showed elevated right-sided pressures, normal LVEF, troponins normal
- Repeat CT angiography of chest 02/19 showed worsening pulmonary edema and effusions, no evidence of PE
- During daily IV Lasix 40 mg, repeat chest imaging this morning 02/21 shows significant improvement
- Will transition to p.o. Lasix as needed, recommend outpatient cardiology and pulmonology follow-up
- Suspect desmopressin use for diabetes insipidus may have been contributing to volume overload, decreased dose from twice daily to daily, discussed with patient's primary revenue cycle manager Dr. Ambar Saunders
Acute hypoxic respiratory failure:
- Likely secondary to pulmonary edema and possible infection
- No longer requiring supplemental oxygen, desaturates only to 92% on room air with ambulation, does not qualify for home oxygen
- Treatment of pulmonary edema as above
- Continue antibiotics with doxycycline, added Levaquin for fevers which have since resolved, will continue antibiotics for another 4 days to complete a total 7-day course
- DuoNebs ordered as needed
- She will need outpatient pulmonology follow-up for PFTs considering approximately 14-pdzx-xtvi smoking history
Central diabetes insipidus:
- Decreased home dose of desmopressin to 0.1 mg once daily
DVT prophylaxis: SCDs
CODE STATUS: Full code
Total time spent on today's encounter was 55 minutes
Anticipated Discharge: Within 24 hours
Subjective/Interval History
-
Date of Service: February 21, 2025
Patient was seen and examined at bedside this morning. Feeling well but still hypoxic with ambulation. Repeat chest x-ray this morning looks improved.
Objective Data
-
Labs:
Laboratory Results
02/21/25
03:52
WBC 3.7 L
Hgb 8.6 L
Hct 24.4 L
Plt Count 48 L
Sodium 141
Potassium 4.1
Chloride 112 H
Carbon Dioxide 21 L
BUN 22 H
Creatinine 0.8
Glucose 120 H
Calcium 8.7
Total Bilirubin 1.4 H D
AST 34
ALT 39 H
Alkaline Phosphatase 65
Vital Signs:
Vital Signs
Temp Pulse Resp BP Pulse Ox
98.0 F 61 17 131/55 93
02/21/25 07:20 02/21/25 04:00 02/21/25 04:00 02/21/25 09:12 02/21/25 11:39
I&O
02/20/25 02/21/25 02/22/25
06:59 06:59 06:59
Intake Total 1979 / 1979
Output Total 1700 / 1700
Balance 280 / 280
Review of Systems
-
History Source: Patient
All other systems: Reviewed and negative
Physical Exam
-
General: No Apparent Distress
[2025-02-21] MEDS: VIBRAMYCIN IV (16:14)
--- NOTE | 2025-02-21 16:28 | W.DCSUMMARY ---
Discharge Summary
Discharge Data
Date of Admission: 02/18/25
Date of Discharge: 02/21/25
Total time spent discharging patient (in min): 50
-
Pending Results: No
Hospital Course
Ms. Bay is a 69-year-old female with medical history of pituitary tumor (nonsurgical management), central diabetes insipidus, Graves' disease (status post thyroidectomy and subsequent acquired hypothyroidism), seizure disorder, and chronic iron
deficiency anemia who presented with generalized weakness and GI symptoms. Her symptoms began on Sunday with 1 episode of diarrhea. She has also had intermittent nausea and vomiting. She reported a fever of 100.6 �F at home 1 day prior to
arrival. She denied abdominal pain or blood in her stools. She has received iron infusions in the past remotely but never blood transfusions. She has had a colonoscopy which was reportedly negative previously and a Cologuard 3 years ago which was
also reportedly negative. She has a significant smoking history of approximately 40 pack years, quit 3 years ago when she developed seizures. Has never followed up with a blood bank laboratory technician.
In the ED, she was found to be mildly febrile with a temperature of 100.4 �F, normotensive, and mildly hypoxic with a pulse ox in the high 80s on room air which improved to the mid 90s on 2 L nasal cannula. Labs revealed pancytopenia with WBC 3.6,
hemoglobin 3.8, and platelets of 58,000. Chemistry was remarkable for a BUN of 30 with a creatinine of 1.0, mildly abnormal LFTs with a T. bili 1.5/AST 35/ALT 39, BNP elevated at 5700. Chest CT showed pulmonary edema and small bilateral pleural
effusions. Respiratory panel was negative for COVID and influenza. She was given a dose of IV Lasix and 2 units of PRBCs were ordered. She was then admitted for further evaluation and management of symptomatic anemia and pancytopenia.
She was transfused a total of 4 units PRBCs during this admission with appropriate response in her hemoglobin to greater than 8 where it remained stable. Direct antiglobulin test was negative, peripheral smear was unremarkable, hemolysis was
considered unlikely. Her WBC or platelets did not change significantly. She had no absolute neutropenia or lymphopenia. She had an MCV of 109 and an inappropriately low reticulocyte count which raised concern for myelodysplasia. She had
intermittent low-grade fevers during this hospitalization, abnormal chest imaging, and urine culture growing pansensitive E. coli and so she was started on antibiotics with doxycycline and Levaquin. Serologies for tickborne illness were obtained
and still pending at time of discharge. She was afebrile for greater than 48 hours at time of hospital discharge. She will be continued on antibiotics for another 4 days to complete a total 10-day course. She was evaluated inpatient by hematology
and will need close outpatient follow-up for possible bone marrow biopsy and to follow-up on final results of serologies for tickborne disease.
She developed a cough during her hospitalization and remained on low-flow oxygen via nasal cannula for mild hypoxia. CT angiography of her chest showed no evidence of pulmonary embolism, however did show worsening pulmonary edema and pleural
effusions. Echocardiogram showed elevated right-sided pressures with normal LVEF. Her troponins were within normal limits. Her respiratory status significantly improved and pulmonary edema resolved with IV Lasix and with decrease in her home dose
of desmopressin from 0.1 mg twice daily to once daily. This change in her desmopressin dosing was discussed with her primary airconditioning drafting officer, Dr. Ambar Saunders. The patient was able to be weaned to room air and did not desaturate significantly
with ambulation. She did not require supplemental oxygen at time of discharge to home. Lasix was discontinued. She will need outpatient follow-up with a blood bank laboratory technician for pulmonary function testing and with a gambling floor supervisor for ongoing monitoring
and further evaluation of possible heart failure. She should also follow-up with her airconditioning drafting officer for management of her diabetes insipidus and desmopressin dosing. At time of hospital discharge she was medically stable.
General: No Apparent Distress, Comfortable and Conversant
HEENT: NormoCephalic, Moist mucous membranes, Atraumatic
Respiratory: Clear and Non Labored Respirations
Cardiac: S1/S2 and Regular Rhythm; No Rub or Gallop
GI: Soft, Non Tender, Non Distended and Normal Bowel Sounds
Musculoskeletal: No Edema, no deformity
Skin: Warm and dry
: NO Page
Neuro: Awake, Alert, Nonfocal/grossly intact
Psych: Calm and Intact Judgment/Insight
Discharge Plan
-
Patient Disposition: Home (Routine Discharge)
Discharge Diagnosis/Procedures: Pancytopenia, anemia requiring transfusions
Activity Restrictions/Additional Instructions:
Ms. Bay is a 69-year-old female with medical history of pituitary tumor (nonsurgical management), central diabetes insipidus, Graves' disease (status post thyroidectomy and subsequent acquired hypothyroidism), seizure disorder, and chronic iron
deficiency anemia who presented with generalized weakness and GI symptoms. Her symptoms began on Sunday with 1 episode of diarrhea. She has also had intermittent nausea and vomiting. She reported a fever of 100.6 �F at home 1 day prior to
arrival. She denied abdominal pain or blood in her stools. She has received iron infusions in the past remotely but never blood transfusions. She has had a colonoscopy which was reportedly negative previously and a Cologuard 3 years ago which was
also reportedly negative. She has a significant smoking history of approximately 40 pack years, quit 3 years ago when she developed seizures. Has never followed up with a blood bank laboratory technician.
In the ED, she was found to be mildly febrile with a temperature of 100.4 �F, normotensive, and mildly hypoxic with a pulse ox in the high 80s on room air which improved to the mid 90s on 2 L nasal cannula. Labs revealed pancytopenia with WBC 3.6,
hemoglobin 3.8, and platelets of 58,000. Chemistry was remarkable for a BUN of 30 with a creatinine of 1.0, mildly abnormal LFTs with a T. bili 1.5/AST 35/ALT 39, BNP elevated at 5700. Chest CT showed pulmonary edema and small bilateral pleural
effusions. Respiratory panel was negative for COVID and influenza. She was given a dose of IV Lasix and 2 units of PRBCs were ordered. She was then admitted for further evaluation and management of symptomatic anemia and pancytopenia.
She was transfused a total of 4 units PRBCs during this admission with appropriate response in her hemoglobin to greater than 8 where it remained stable. Direct antiglobulin test was negative, peripheral smear was unremarkable, hemolysis was
considered unlikely. Her WBC or platelets did not change significantly. She had no absolute neutropenia or lymphopenia. She had an MCV of 109 and an inappropriately low reticulocyte count which raised concern for myelodysplasia. She had
intermittent low-grade fevers during this hospitalization, abnormal chest imaging, and urine culture growing pansensitive E. coli and so she was started on antibiotics with doxycycline and Levaquin. Serologies for tickborne illness were obtained
and still pending at time of discharge. She was afebrile for greater than 48 hours at time of hospital discharge. She will be continued on antibiotics for another 4 days to complete a total 10-day course. She was evaluated inpatient by hematology
and will need close outpatient follow-up for possible bone marrow biopsy and to follow-up on final results of serologies for tickborne disease.
She developed a cough during her hospitalization and remained on low-flow oxygen via nasal cannula for mild hypoxia. CT angiography of her chest showed no evidence of pulmonary embolism, however did show worsening pulmonary edema and pleural
effusions. Echocardiogram showed elevated right-sided pressures with normal LVEF. Her troponins were within normal limits. Her respiratory status significantly improved and pulmonary edema resolved with IV Lasix and with decrease in her home dose
of desmopressin from 0.1 mg twice daily to once daily. This change in her desmopressin dosing was discussed with her primary airconditioning drafting officer, Dr. Ambar Saunders. The patient was able to be weaned to room air and did not desaturate significantly
with ambulation. She did not require supplemental oxygen at time of discharge to home. Lasix was discontinued. She will need outpatient follow-up with a blood bank laboratory technician for pulmonary function testing and with a gambling floor supervisor for ongoing monitoring
and further evaluation of possible heart failure. She should also follow-up with her airconditioning drafting officer for management of her diabetes insipidus and desmopressin dosing. At time of hospital discharge she was medically stable.
Referrals:
Carissa Regan MD [Active, Pulmonary Medicine]
Referral Note: eval for COPD
Ambar Saunders MD [Consulting Staff, Endocrinology]
Dominick Frankel MD [Active, Cardiology]
Referral Note: eval for HFpEF
Lolly Alston CRNP [Family Provider, Internal Medicine]
Patrick Mckeon MD [Active, Hematology / Oncology]
Referral Note: eval for MDS
Prescriptions:
New
desmopressin 0.1 mg Tablet
0.1 mg PO DAILY 30 Days Qty: 30 0RF
doxycycline hyclate 100 mg capsule
100 mg PO BID 4 Days Qty: 8 0RF
Continued
cyanocobalamin (vitamin B-12) 1,000 mcg Tablet
1,000 mcg PO DAILY
aspirin 81 mg Tablet,Delayed Release (Dr/Ec)
81 mg PO DAILY
citalopram [Celexa] 20 mg Tablet
20 mg PO DAILY
ferrous sulfate 325 mg (65 mg iron) Tablet
325 mg PO Q48H
mirtazapine 45 mg Tablet
45 mg PO HS
propranolol 20 mg Tablet
20 mg PO TID
levothyroxine [Synthroid] 112 mcg Tablet
112 mcg PO DAILY
cholecalciferol (vitamin D3) [Vitamin D3] 50 mcg (2,000 unit) Capsule
50 mcg PO DAILY
lacosamide [Vimpat] 200 mg Tablet
200 mg PO BID
acetaminophen [Tylenol Extra Strength] 500 mg Tablet
1,000 mg PO Q6HPRN PRN (Reason: mild pain)
calcium carbonate [Tums] 200 mg calcium (500 mg) Tablet,Chewable
400 mg PO BIDPRN PRN (Reason: gerd)
Discontinued
desmopressin 0.1 mg Tablet
0.1 mg PO BID
Discharge Orders:
Discharge Patient (As Directed); Ordered 02/21/25
Ordered By: Taiwo Tohmas
Discharge Date and Time
Print Language: YI
--- NOTE | 2025-02-21 16:50 | PTCARENOTE ---
Discharge orders received from provider; D/c instructions reviewed with Pt and Pt's daughter's present. All questions answered; IV and monitor removed. d/c to home.
[2025-02-23 08:00] LABS: Lyme Disease DNA by PCR Not Detected; Lyme Source Serum
== END 2025-02-21 17:00 | disposition home or self-care (01) | DRG 808 ==
LOC: IMU 14:30
PROVIDERS: Nurse Practitioner Gerontology; Physician Assistant; Registered Nurse; ADMITTING PHYSICIAN Internal Medicine; EMERGENCY PHYSICIAN Emergency Medicine; FAMILY PHYSICIAN Nurse Practitioner; OTHER PHYSICIAN Internal Medicine Hematology & Oncology
PROC: 30233N1 Transfusion of Nonautologous Red Blood Cells into Peripheral Vein, Percutaneous Approach (ICD-10-PCS; 2025-02-18)
DX: D61.818 Other pancytopenia (principal); J81.0 Acute pulmonary edema; J96.01 Acute respiratory failure with hypoxia; E23.2 Diabetes insipidus; J90 Pleural effusion, not elsewhere classified; E05.00 Thyrotoxicosis with diffuse goiter without thyrotoxic crisis or storm; E89.0 Postprocedural hypothyroidism; G40.909 Epilepsy, unspecified, not intractable, without status epilepticus; D53.9 Nutritional anemia, unspecified; I45.10 Unspecified right bundle-branch block; D49.7 Neoplasm of unspecified behavior of endocrine glands and other parts of nervous system; D50.9 Iron deficiency anemia, unspecified; K59.00 Constipation, unspecified; I10 Essential (primary) hypertension; F41.9 Anxiety disorder, unspecified; T38.895A Adverse effect of other hormones and synthetic substitutes, initial encounter; Y92.9 Unspecified place or not applicable; M19.90 Unspecified osteoarthritis, unspecified site; F32.A Depression, unspecified; Z87.891 Personal history of nicotine dependence; Z88.1 Allergy status to other antibiotic agents; Z88.0 Allergy status to penicillin; Z88.8 Allergy status to other drugs, medicaments and biological substances; Z79.82 Long term (current) use of aspirin; Z79.890 Hormone replacement therapy; Z11.52 Encounter for screening for COVID-19; Z87.898 Personal history of other specified conditions
CPT/HCPCS: 71045; 71046; 71260; 71275; 74177; 80053; 80061; 81003; 81015; 82248; 82607; 82728; 82746; 83010; 83540; 83550; 83615; 83735; 83880; 84100; 84443; 84484; 84550; 85014; 85018; 85025; 85027; 85045; 85610; 85730; 86618; 86850; 86880; 86900; 86901; 86920; 87015; 87040; 87077; 87086; 87147; 87154; 87186; 87205; 87207; 87468; 87476; 87484; 87502; 87798; 87811; 93005; 93306; 94640; 97163; 97166; 99285; P9016; Q9957; Q9967

== ENCOUNTER → 2025-03-04 07:01 | Outpatient (REF) | payer MEDICARE, SELFPAY ==
[2025-03-04] VITALS (8 sets, daily range): BP systolic 62–139; BP diastolic 46–89
[2025-03-04] MEDS: ATIVAN 0.5 MG PO (07:28)
[2025-03-04 07:48] LABS: Hematocrit 19.8 % (37.0-47.0); Hemoglobin 7.0 g/dL (12.0-16.0); Mean Corp Hgb Conc. 35.4 g/dL (33.0-37.0); Mean Corpuscular Volume 95.2 fL (81.0-99.0); Platelet Count 24 10^3/uL (130-400); Red Cell Dist. Width 15.5 % (11.5-14.5)
[2025-03-04 08:33] LABS: Platelets Checked Yes
[2025-03-04 08:34] LABS: Anisocytosis 1+; Hypochromasia Slight; Normal RBC Morphology No; Ovalocytes 1+; Polychromasia 1+
[2025-03-04 08:35] LABS: Total Cells Counted 100
[2025-03-04 08:36] LABS: Absolute Neutrophils -Man Diff 0.2 10^3/uL (1.4-6.5)
== END ==
LOC: RADI 07:01
PROVIDERS: ATTENDING PHYSICIAN Internal Medicine Hematology & Oncology
DX: D61.818 Other pancytopenia (principal); Z79.01 Long term (current) use of anticoagulants
CPT/HCPCS: 36415; 38222; 77012; 85025; 88305; 88311; 88312; 88313

== ENCOUNTER 2025-03-06 08:54 | Emergency (ER) | payer MEDICARE, SELFPAY ==
[2025-03-06] VITALS (9 sets, daily range): BP systolic 102–154; BP diastolic 49–83; BMI 27.1
--- NOTE | 2025-03-06 09:29 | ED.GENMED ---
History of Present Illness
General
Chief Complaint: Abnormal Lab Value
Source: patient
Exam Limitations: none
Time Seen by Provider: 03/06/25 09:29
Nursing documentation reviewed up to this point in time: agreed with
History of Present Illness
History of Present Illness:
69-year-old female with history of seizures, anemia, Graves' disease with parathyroidectomy, HTN, HLD, anxiety, diabetes insipidus, short term memory loss, presents for shortness of breath, and low oxygen saturation noted at home. During a recent
hospitalization, her hemoglobin level was critically low at 3.8 g/dL. After a stay of four days, during which a thorough workup including investigations for a bleed and viral infections yielded negative results, she was discharged home on February 21.
A bone marrow biopsy was performed recently on Sunday, but results are yet awaiting. Subsequent blood work revealed a hemoglobin level initially at 7 g/dL and, more recently from blood drawn yesterday, it decreased to 6.3 g/dL. PCP tried to get
her an out pt transfusion, but she has been unable to secure until (2 days) so told to come here. The patient reports feeling generally well, but experiences shortness of breath upon exertion and has noticed a decrease in appetite fallon to her
initial presentation. there has been no change in color of stools.
Past History
Past History
ED Past Medical History: Seizures and Other (Diabetes insipidus, Graves' disease, anemia)
ED Past Surgical History: Other (Parathyroidectomy)
Social History
Tobacco: Non-smoker
Alcohol: None
Personal: Single
Living: with family
Review of Systems
Review of Systems
Allergies reviewed?: Yes
All Other Systems: ROS reviewed and negative except as documented in HPI and ROS
Respiratory: Reports other
Cardiac: Denies chest pain
ABD/GI: Denies abdominal pain, nausea, bloody stools or black stools
Phy Exam
Physical Exam
Physical Exam:
GENERAL: No acute distress. A&Ox3.
CONSTITUTIONAL: Afebrile.
EYES: clear, conjunctivae normal
ENMT: moist mucus membranes, Pharynx nl
RESPIRATORY: Regular respirations, nonlabored, lungs clear.
CARDIOVASCULAR: Regular rate and rhythm, no murmurs, no rubs.
GI: Soft, nontender, normal BS
MUSCULOSKELETAL: Moves with ease. Well perfused.
SKIN: Warm, dry, pale
PSYCH: Normal mood and affect. Well kept, interactive and appropriate
NEUROLOGIC: Awake, alert and oriented. No focal neurological deficits
Course
Orders/Labs/Results
Orders:
Orders
03/06/25 09:53
Complete Blood Count/With Diff Urgent
Comprehensive Metabolic Panel Urgent
03/06/25 10:50
Type+Screen Urgent
BBK Wristband Number:
03/06/25 11:25
* Blood Bank Products Urgent
Blood Bank Products: *Packed RBC Leuko(PRBC's)
Quantity: 2
Transfuse Today: Yes
Reason: Anemia
IV Insert/Care/Rem.- Treatment PRN
03/06/25 11:44
* Blood Bank Products Urgent
Blood Bank Products: RBC Leuko CMV Neg Irr
Quantity: 2
Transfuse Today: Yes
Reason: Anemia
03/06/25 16:55
Furosemide [Lasix] 40 mg IV NOW STA
Abnormal Lab Results
03/06/25 03/06/25
09:53 10:50
WBC 2.7 L 10^3/uL
(4.8-10.8)
RBC 1.69 L 10^6/uL
(4.20-5.40)
Hgb 5.5 L* D g/dL
(12.0-16.0)
Hct 15.6 L* %
(37.0-47.0)
MCH 32.5 H pg
(27.0-31.0)
RDW 15.5 H %
(11.5-14.5)
Plt Count 24 L* 10^3/uL
(130-400)
MPV 12.7 H fL
(7.4-10.4)
Absolute Neuts (auto) 0.2 L* 10^3/uL
(1.4-6.5)
Neutrophils % 5.8 L %
(42.2-75.2)
Lymphocytes % 73.9 H %
(20.5-51.1)
Monocytes % 18.8 H %
(1.7-9.3)
Chloride 109 H mmol/L
(98-107)
Glucose 125 H mg/dl
(70-99)
Crossmatch IS Only See Detail
03/06/25 09:53
03/06/25 09:53
Vital Signs
Initial and Last Documented VS:
Initial Vital Signs
Temp Pulse Resp BP Pulse Ox
98.8 F 90 24 154/57 98
03/06/25 08:56 03/06/25 08:56 03/06/25 08:56 03/06/25 08:56 03/06/25 08:56
Last Documented Vital Signs
Temp Pulse Resp BP Pulse Ox
98.6 F 76 15 114/53 96
03/06/25 19:26 03/06/25 20:00 03/06/25 20:00 03/06/25 20:00 03/06/25 19:00
MDM/Problems Addressed
MDM/Problems Addressed:
69-year-old female with history of seizures, anemia, Graves' disease with parathyroidectomy, HTN, HLD, anxiety, diabetes insipidus, short term memory loss, presents for shortness of breath, and low oxygen saturation noted at home. During a recent
hospitalization, her hemoglobin level was critically low at 3.8 g/dL. After a stay of four days, during which a thorough workup including investigations for a bleed and viral infections yielded negative results, she was discharged home on February 21.
A bone marrow biopsy was performed recently on Sunday, but results are yet awaiting. Subsequent blood work revealed a hemoglobin level initially at 7 g/dL and, more recently from blood drawn yesterday, it decreased to 6.3 g/dL. PCP tried to get
her an out pt transfusion, but she has been unable to secure until (2 days) so told to come here. The patient reports feeling generally well, but experiences shortness of breath upon exertion and has noticed a decrease in appetite fallon to her
initial presentation. there has been no change in color of stools.
CBC: Hgb 5.5 Platelets 24
CMP normal
Consulted Dr. Morillo Oncology.
He thinks most likely AML he will get, biopsy results
Request CMV neg blood
States she can be discharged after transfusion.
3:10 p.m.
Blood just arrived
5:00 PM: Blood infusing no sign of adverse reaction, patient has a history of CHF so we will give Lasix 40 mg now since she is getting 500 mL of fluid/blood
Pt remains stable has f/u appt in 2 days with Endocrine and in 4 days with Hematology
Case discussed with Dr. Jacobson who will assume care from this point
Initially ordered Lasix as pt got it last time she had transfusion. Daughter now states it was because she has lung crackles, fever and she doesn't have any of that now. Records reviewed, 02/19- admission pt had hypoxia w CT showing pulmonary edema
after 4 U PRBCs. also. Daughter weighs her frequently, has Laxix at home prn since DC from hospital and has never had to use it.
Lungs CTA, pulse ox 97% RA, no edema
Lasix order cancelled.
*Pulse Oximetry
SaO2: 98
Oxygen Mode of Delivery: Room air
Patient hypoxic: no
*Critical Care Note
Total Time (30-74mins, 75-104mins- exclusive of procedures): Not Applicable
ED Attending Note
-
Portions of this chart may have been created with voice recognition software.� Occasional wrong word or��sound alike� substitutions may have occurred due to the inherent limitations of voice recognition software.
Discharge Plan
Departure
Patient Disposition: Home (Routine Discharge)
Date of Disposition: 03/06/25
Time of Disposition: 20:20
Patient with high blood pressure during this ER visit?: No
Condition: Fair
Discharge Problem:
Anemia
Prescriptions:
No Action
cyanocobalamin (vitamin B-12) 1,000 mcg Tablet
1,000 mcg PO DAILY
aspirin 81 mg Tablet,Delayed Release (Dr/Ec)
81 mg PO DAILY
citalopram [Celexa] 20 mg Tablet
20 mg PO DAILY
ferrous sulfate 325 mg (65 mg iron) Tablet
325 mg PO Q48H
mirtazapine 45 mg Tablet
45 mg PO HS
propranolol 20 mg Tablet
20 mg PO TID
levothyroxine [Synthroid] 112 mcg Tablet
112 mcg PO MOTUWETHFRSA
cholecalciferol (vitamin D3) [Vitamin D3] 50 mcg (2,000 unit) Capsule
50 mcg PO DAILY
lacosamide [Vimpat] 200 mg Tablet
200 mg PO BID
azelastine 137 mcg (0.1 %) [place],Non-Aerosol
1 spray INTRANASAL HS
fluticasone propionate [Flonase] 50 mcg/actuation [place],Suspension
1 spray INTRANASAL DAILY
levothyroxine [Synthroid] 112 mcg Tablet
56 mcg PO CLEMENTE
desmopressin 0.1 mg tablet
0.1 mg PO QPM
Referrals:
Rashawn Morillo MD [Active, Hematology / Oncology] - Keep scheduled appt
Lolly Alston CRNP [Family Provider, Internal Medicine]
Activity Restrictions/Additional Instructions:
As we discussed, your received 2 untis of blood.
keep your appointment with Division Leader on Sunday and Auto Bench Mechanic Sunday.
Interventions
Interventions:
*Risk Screen - Suicide Last Done: 03/06/25 09:36
*General Assessment Last Done: 03/06/25 09:36
*Neglect/Abuse Screening Last Done: 03/06/25 09:36
*ED- Fall Risk Assessment Last Done: 03/06/25 09:36
*ED COVID-19 Vaccine History Last Done: 03/06/25 09:36
*Nursing Disposition Last Done: 03/06/25 20:20
Discharge Date and Time
Discharge Date/Time: 03/06/25 20:20
Print Language: TUVALUAN
[2025-03-06 10:12] LABS: ALT (SGPT) 21 U/L (0-35); AST (SGOT) 23 U/L (14-36); Albumin 4.1 g/dl (3.5-5.0); Alkaline Phosphatase 59 U/L (38-126); Blood Urea Nitrogen 16 mg/dl (7-17); Calcium 9.3 mg/dl (8.4-10.2); Carbon Dioxide 22 mmol/L (22-30); Chloride 109 mmol/L (98-107); Estimated Creatinine Clearance 88 ml/min; Glucose 125 mg/dl (70-99); Potassium 4.6 mmol/L (3.5-5.1); Sodium 138 mmol/L (135-145); Total Protein 7.1 g/dl (6.3-8.2); eGFR > 60.00
[2025-03-06 10:28] LABS: Hematocrit 15.6 % (37.0-47.0); Hemoglobin 5.5 g/dL (12.0-16.0); Mean Corp Hgb Conc. 35.3 g/dL (33.0-37.0); Mean Corpuscular Volume 92.3 fL (81.0-99.0); Nucleated Red Blood Cells % 0 %; Platelet Count 24 10^3/uL (130-400); Red Cell Dist. Width 15.5 % (11.5-14.5)
--- NOTE | 2025-03-06 15:56 | EDRN ---
Unable to complete the TAR documentation due to the PRBC not being able to scan. Called the blood bank, spoke to Sarah and will complete the documentation on the pink paper per protocol.
--- NOTE | 2025-03-06 20:17 | EDRN ---
Forrest Lewis RN finished PRBC documentation on pink transfusion form.
== END 2025-03-06 20:20 | disposition home or self-care (01) ==
LOC: EMR 08:54
PROVIDERS: Registered Nurse; EMERGENCY PHYSICIAN Emergency Medicine; FAMILY PHYSICIAN Nurse Practitioner
DX: D64.9 Anemia, unspecified (principal); R06.02 Shortness of breath; R56.9 Unspecified convulsions; E05.00 Thyrotoxicosis with diffuse goiter without thyrotoxic crisis or storm; F41.9 Anxiety disorder, unspecified; E23.2 Diabetes insipidus; E78.5 Hyperlipidemia, unspecified; I10 Essential (primary) hypertension; I34.0 Nonrheumatic mitral (valve) insufficiency; Z98.890 Other specified postprocedural states
CPT/HCPCS: 99285; 36430; 80053; 85025; 86850; 86900; 86901; 86920; P9058